=== PATIENT | female | born 1990 | race Caucasian/White ===

== ENCOUNTER 2017-08-31 14:58 | Emergency (ER) | payer OTHER ==
--- NOTE | 2017-08-31 16:05 | ED Physician Documentation ---
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: section - Present Medications Home Medications: Ambulatory Orders Medication Instructions Recorded Confirmed Amoxicillin 500 mg PO Q8H #30 capsule 08/31/17 Ibuprofen [Motrin] 400 mg PO Q6H PRN #30 tablet 08/31/17 - Allergies Allergies/Adverse Reactions: Allergies Allergy/AdvReac Type Severity Reaction Status Date / Time No Known Drug Allergies Allergy Verified 08/31/17 15:11 - Social History Does the pt smoke?: No Smoking Status: Never smoker Does the pt drink ETOH?: No Does the pt have substance abuse?: No PD ED PE NORMAL - Vitals Vital signs reviewed: Yes - General General: Alert and oriented X 3 - HEENT HEENT: No: Ears normal (dulled TM s erythema or purulent fluid), Pharynx benign (mild erythema no exudate) - Neck Neck: Supple, no meningeal sign, Other (R ant cervial adenopathy, no pain with tracheal manipulation) - Cardiac Cardiac: RRR - Respiratory Respiratory: No respiratory distress, Clear bilaterally - Abdomen Abdomen: Soft, Non tender, No organomegaly - Derm Derm: Normal color - Free text exam Free text exam: no supra infra clavicular or axillary adenopathy Results - Vitals Vitals: Vital Signs - 24 hr 08/31/17 15:08 Temperature 36.7 C Heart Rate 64 Respiratory 16 Rate Blood Pressure 129/72 O2 Saturation 100 Oxygen O2 Source Room air Departure - Departure Disposition: 01 Home, Self Care Clinical Impression: Cervical adenitis Condition: Good Instructions: ED Cervical Adenitis Abx Tx Prescriptions: Amoxicillin 500 mg PO Q8H #30 capsule Ibuprofen [Motrin] 400 mg PO Q6H PRN #30 tablet PRN Reason: Pain
[2017-08-31 16:30] VITALS: BP 115/77
== END 2017-08-31 16:29 | disposition home or self-care (01) ==
LOC: ED 14:58
DX: I88.9 Nonspecific lymphadenitis, unspecified (principal)
CPT/HCPCS: 99283

== ENCOUNTER 2018-03-08 10:13 | Emergency (ER) | payer OTHER ==
[2018-03-08 10:21] VITALS: BP 127/95
[2018-03-08] MEDS ORDERED: LIDOCAINE-EPINEPH-TETRACAINE 3 ML SYRINGE TOP STA (10:30)
--- NOTE | 2018-03-08 10:34 | ED Physician Documentation ---
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 - Present Medications Home Medications: Ambulatory Orders Medication Instructions Recorded Confirmed Pnv No.122/Iron/Folic Acid 1 each PO DAILY 03/08/18 03/08/18 [ Multi Tablet] - Allergies Allergies/Adverse Reactions: Allergies Allergy/AdvReac Type Severity Reaction Status Date / Time No Known Drug Allergies Allergy Verified 03/08/18 10:21 - Social History Does the pt smoke?: No Smoking Status: Never smoker Does the pt drink ETOH?: No Does the pt have substance abuse?: No PD ED PE NORMAL - Vitals Vital signs reviewed: Yes - Extremities Extremities: Other (L index approx 1 cm very clean lac to radial aspect PIP, no FB, no tendon involvemnt, nl sensation, no active bleeding) Results - Vitals Vitals: Vital Signs - 24 hr 03/08/18 10:19 Temperature 35.9 C L Heart Rate 104 H Respiratory 18 Rate Blood Pressure 127/95 H O2 Saturation 98 Oxygen O2 Source Room air Procedures - Laceration (location) L index Length in cm: 1 Wound type: Linear Neurovascular status: Sensory intact, Motor intact Tendon involvement: Tendon intact Anesthesia: LET Wound Preparation: Irrigated copiously NS Skin layer closure: Dermabond Other: Patient tolerated well, No complications, Tetanus UTD (she called her mom and confirmed 5 years ago) PD MEDICAL DECISION MAKING - ED course ED course: medical screening exam provided 1 cm lac : very clean and sharp and well approximated and only approx 1 cm - feel good candidate for dermabond - emphasized need for wearing splint so as not to stress healing wound irrigated repaired dc - Sepsis Event Vital Signs: Vital Signs - 24 hr 03/08/18 10:19 Temperature 35.9 C L Heart Rate 104 H Respiratory 18 Rate Blood Pressure 127/95 H O2 Saturation 98 Oxygen O2 Source Room air Departure - Departure Disposition: 01 Home, Self Care Clinical Impression: Laceration Condition: Good Instructions: ED Laceration Ext Skin Glue Follow-Up: DAJUAN SALEH MD [Primary Care Provider] - Comments: Wear the splint to avoid stressing the healing wound The glue will gradually flake off over about 10 days May shower and wash your hands as needed Do not apply any ointment or lotion as that will dissolve the glue This wound should be low risk for infection - but even low risk wounds and with good wound care, some cuts get infected - please return if you notice redness swelling, streaks, discharge, or fever
== END 2018-03-08 11:12 | disposition home or self-care (01) ==
LOC: ED 10:13
DX: O99.89 Other specified diseases and conditions complicating pregnancy, childbirth and the puerperium (principal); S61.211A Laceration without foreign body of left index finger without damage to nail, initial encounter; W26.0XXA Contact with knife, initial encounter; Y93.G9 Activity, other involving cooking and grilling; Z3A.20 20 weeks gestation of pregnancy
CPT/HCPCS: 12001; 99282; 99283

== ENCOUNTER 2018-03-09 19:58 | Observation (INO) | payer OTHER ==
[2018-03-09 20:22] LABS: BILIRUBIN,URINE NEGATIVE (NEGATIVE); GLUCOSE, URINE (UA) NEGATIVE (NEGATIVE); KETONES,URINE (UA) NEGATIVE (NEGATIVE); LEUKOCYTE ESTERASE, URINE NEGATIVE (NEGATIVE); NITRITE,URINE NEGATIVE (NEGATIVE); OCCULT BLOOD,URINE NEGATIVE (NEGATIVE); PROTEIN,URINE NEGATIVE (NEGATIVE); UROBILINOGEN,URINE 0.2 (NORMAL) E.U./dL (NORMAL)
[2018-03-09 20:24] LABS: CLARITY,URINE CLEAR (CLEAR)
[2018-03-09] MEDS ORDERED: HYDROmorphone 0.5 MG/0.5 ML SYRINGE IVP PRN (20:47)
[2018-03-09] MEDS ORDERED: ONDANSETRON 4 MG/2 ML VIAL IVP PRN (20:47)
[2018-03-09] MEDS: LACTATED RINGERS 1,000 ML IV SCH (21:16)
[2018-03-09 21:26] LABS: BACTERIA,URINE None Seen /HPF (None Seen); RBC,URINE None Seen /HPF (0-5); SQUAMOUS EPITHELIAL CELL,UR MOD Squamous (<= Few)
[2018-03-09] MEDS: HYDROmorphone 0.5 MG/0.5 ML SYRINGE IVP PRN (22:36)
[2018-03-09 22:40] LABS: BASOPHILS % (AUTO) 0.2 %; EOSINOPHILS # (AUTO) 0.1 10^3/uL (0.0-0.7); EOSINOPHILS % (AUTO) 0.6 %; HGB - HEMOGLOBIN 12.2 g/dL (12.0-16.0); LYMPHOCYTES # (AUTO) 1.2 10^3/uL (1.5-3.5); LYMPHOCYTES % (AUTO) 10.1 %; MEAN CORPUSCULAR HEMOGLOBIN 30.3 pg (27.0-31.0); MEAN CORPUSCULAR HGB CONC 34.4 g/dL (32.0-36.0); MEAN CORPUSCULAR VOLUME 88.1 fL (81.0-99.0); MEAN PLATELET VOLUME 7.9 fL (7.9-10.8); MONOCYTES # (AUTO) 0.7 10^3/uL (0.0-1.0); MONOCYTES % (AUTO) 5.4 %; NEUTROPHILS # (AUTO) 10.1 10^3/uL (1.5-6.6); NEUTROPHILS % (AUTO) 83.7 %; PLT - PLATELET COUNT 215 10^3/uL (130-450); RED BLOOD COUNT 4.04 10^6/uL (4.20-5.40); RED CELL DISTRIBUTION WIDTH 12.6 % (12.0-15.0); WHITE BLOOD COUNT 12.1 x10^3/uL (4.8-10.8)
--- NOTE | 2018-03-09 23:43 | Ultrasound Report ---
Reason: R abdominal pain Procedure Date: 03/09/2018 Accession Number: [id number] / [id number] Procedure: US - Abdomen Limited CPT Code: FULL RESULT: EXAM: Limited ABDOMEN ultrasound EXAM DATE: 03/09/2018 10:53 PM. CLINICAL HISTORY: R abdominal pain. COMPARISON: RETROPERITONEAL LIMITED 03/09/2018 10:35 PM. TECHNIQUE: Real-time scanning was performed of the right lower quadrant with static images obtained. FINDINGS: APPENDIX: Not seen. COMPRESSION TOLERATED: Marked ASSOCIATED FINDINGS: Lymph Nodes Seen: No Free Fluid/Complex Fluid Seen: No Thickened Bowel Wall Seen: No Other: 7 mm calculus at the right ureterovesicular junction. Normal right ovary. IMPRESSION: Nonvisualization of the appendix. 7 mm calculus at the right ureterovesicular junction. RADIA
--- NOTE | 2018-03-09 23:44 | Ultrasound Report ---
Reason: R flank pain Procedure Date: 03/09/2018 Accession Number: [id number] / [id number] Procedure: US - Retroperitoneal Limited CPT Code: FULL RESULT: EXAM: RENAL ULTRASOUND EXAM DATE: 03/09/2018 10:35 PM. CLINICAL HISTORY: R flank pain. COMPARISON: None. TECHNIQUE: Real-time scanning was performed with static images obtained. As requested, only the right kidney was evaluated. FINDINGS: Right Kidney: 12.0 x 8.3 x 7.1 cm. Moderate hydronephrosis and hydroureter. Bladder: The right ureteral jet is not visualized. There is a 7 mm shadowing calculus at the right ureterovesicular junction. Other: None. IMPRESSION: 7 mm calculus at the right ureterovesicular junction, producing right hydronephrosis and hydroureter. RADIA
[2018-03-10] MEDS: LACTATED RINGERS 1,000 ML IV SCH ×2 (00:33→07:01)
[2018-03-10] MEDS: HYDROmorphone 0.5 MG/0.5 ML SYRINGE IVP PRN ×2 (00:38→02:21)
[2018-03-10] MEDS ORDERED: SODIUM CHLORIDE FLUSH 0.9% 10 ML SYRINGE ONE (02:19)
[2018-03-10] MEDS ORDERED: HYDROmorphone 0.5 MG/0.5 ML SYRINGE IVP PRN (03:34)
[2018-03-10 04:17] LABS: CREATININE 0.6 mg/dL (0.4-1.0)
[2018-03-10 08:12] VITALS: BP 104/53
[2018-03-10] MEDS ORDERED: TAMSULOSIN 0.4 MG CAPSULE PO SCH (09:00)
--- NOTE | 2018-03-10 13:37 | DISCHARGE SUMMARY ---
Physician: Laurita Toussaint DO FACOG DATE OF ADMISSION: 03/09/2018 DATE OF DISCHARGE: 03/10/2018 DIAGNOSES ON ADMISSION 1. A 27-year-old G3, P1-0-1-1 with a 20-week 2-day intrauterine . 2. Right flank pain. 3. History of delivery x1. DIAGNOSES ON DISCHARGE 1. A 27-year-old G3, P1-0-1-1 with a 20-week 3-day intrauterine . 2. Right renal stone. 3. Prior delivery x1. HISTORY OF PRESENT ILLNESS: This is a patient of the [facility]. She is a 27-year-old G3, P1-0-1-1 with a 20-week 2-day intrauterine . She presented with complaints of right flank pain. This pain later evolved to include the right lower quadrant. Records from the [facility] were obtained and show the following past medical history: ALLERGIES: NO KNOWN DRUG ALLERGIES. MEDICATIONS 1. vitamins. 2. Acetaminophen/butalbital/caffeine. SOCIAL HISTORY: She denies any tobacco or alcohol or illicit drug use. Her spouse is Jean Marie Whitehead. PAST SURGICAL HISTORY 1. One AB. 2. One delivery on 05/28/2013 in [place], [place] secondary to arrest of cervical dilation at 7 cm and intolerance to labor at 40 weeks gestation. The male baby weighed 3714 grams. HOSPITAL COURSE: The patient has been seen several times at the [facility] on 10/23, 02/14, 12/25, 01/22, and 02/26. Review of her blood pressures show that she has been normotensive, and she has been planning to go to [facility] for a vaginal trial of labor. records reveal that she is negative for gonorrhea and chlamydia. Quad screen is negative. The patient was worked up, and the urinalysis was negative. A retroperitoneal ultrasound was performed, and showed the right kidney measuring 12.0 x 8.3 x 7.1 cm. There was moderate hydronephrosis and hydroureter. The right ureteral jet was not visualized. There is a 7 mm shadowing calculus at the right ureterovesical junction. Impression: A 7 mm calculus of the right ureterovesical junction producing right hydronephrosis and hydroureter. The patient's symptoms were much improved after IV hydration, Zofran, and Dilaudid. The patient is feeling much better this morning. The patient will be discharged to home today with prescription for Flomax 0.4 mg, as well as a prescription for oxycodone. She has been recommended to see her primary guest relation officer, Dr. Jaime Mcfarland, at the [employer] [facility]. I told her that it is important for her to have Dr. Mcfarland facilitate an immediate urology consult in order to remove the stone. cc: [facility] TD: 03/10/2018 09:05 MTDD
== END 2018-03-10 09:01 | disposition home or self-care (01) ==
LOC: WFO 19:58 → FBP 20:01 → WFO 03-10 → FBP 03-10 00:02
PROVIDERS: ADMIT Obstetrics & Gynecology; ATTEND Obstetrics & Gynecology
DX: O99.89 Other specified diseases and conditions complicating pregnancy, childbirth and the puerperium (principal); N13.2 Hydronephrosis with renal and ureteral calculous obstruction; Z3A.20 20 weeks gestation of pregnancy
CPT/HCPCS: 36415; 76705; 76775; 81001; 82565; 85025; 87086; 96361; 96374; 96375; 96376; 99214; A9270; G0378; J1170; J7120; 81003

== ENCOUNTER 2018-04-06 14:45 | Observation (INO) | payer OTHER ==
[2018-04-06] MEDS ORDERED: LACTATED RINGERS 1,000 ML IV ONE (15:25)
[2018-04-06] MEDS ORDERED: SODIUM CHLORIDE FLUSH 0.9% 10 ML SYRINGE ONE (15:25)
[2018-04-06] MEDS ORDERED: HYDROmorphone 0.5 MG/0.5 ML SYRINGE ONE (15:26)
[2018-04-06 15:39] LABS: BASOPHILS % (AUTO) 0.1 %; EOSINOPHILS # (AUTO) 0.2 10^3/uL (0.0-0.7); EOSINOPHILS % (AUTO) 1.2 %; HGB - HEMOGLOBIN 12.5 g/dL (12.0-16.0); LYMPHOCYTES # (AUTO) 1.5 10^3/uL (1.5-3.5); LYMPHOCYTES % (AUTO) 8.6 %; MEAN CORPUSCULAR HEMOGLOBIN 30.5 pg (27.0-31.0); MEAN CORPUSCULAR HGB CONC 34.2 g/dL (32.0-36.0); MEAN CORPUSCULAR VOLUME 89.2 fL (81.0-99.0); MEAN PLATELET VOLUME 8.2 fL (7.9-10.8); MONOCYTES # (AUTO) 1.1 10^3/uL (0.0-1.0); MONOCYTES % (AUTO) 6.6 %; NEUTROPHILS # (AUTO) 14.6 10^3/uL (1.5-6.6); NEUTROPHILS % (AUTO) 83.5 %; PLT - PLATELET COUNT 215 10^3/uL (130-450); WHITE BLOOD COUNT 17.4 x10^3/uL (4.8-10.8)
[2018-04-06 15:48] LABS: BILIRUBIN,URINE NEGATIVE (NEGATIVE); GLUCOSE, URINE (UA) NEGATIVE (NEGATIVE); KETONES,URINE (UA) TRACE mg/dL (NEGATIVE); LEUKOCYTE ESTERASE, URINE NEGATIVE (NEGATIVE); NITRITE,URINE NEGATIVE (NEGATIVE); OCCULT BLOOD,URINE TRACE-INTA (NEGATIVE); PROTEIN,URINE NEGATIVE (NEGATIVE); UROBILINOGEN,URINE 0.2 (NORMAL) E.U./dL (NORMAL)
[2018-04-06 15:51] LABS: CLARITY,URINE CLEAR (CLEAR)
[2018-04-06] MEDS ORDERED: LACTATED RINGERS 1,000 ML IV SCH (16:00)
[2018-04-06 16:23] LABS: BACTERIA,URINE None Seen /HPF (None Seen); RBC,URINE 0-5 /HPF (0-5); SQUAMOUS EPITHELIAL CELL,UR NONE SEEN (<= Few)
[2018-04-06] MEDS: HYDROmorphone 0.5 MG/0.5 ML SYRINGE IVP PRN ×7 (16:31→23:24)
[2018-04-06] MEDS ORDERED: ZOLPIDEM 5 MG TABLET PO PRN (16:47)
[2018-04-06] MEDS ORDERED: HYDROcod/ACETAM 5/325 MG TABLET PO PRN (16:47)
[2018-04-06] MEDS ORDERED: SODIUM CHLORIDE FLUSH 0.9% 10 ML SYRINGE IVP PRN (16:47)
--- NOTE | 2018-04-06 16:48 | Ultrasound Report ---
Reason: Right flank pain that started this morning Procedure Date: 04/06/2018 Accession Number: [id number] / [id number] Procedure: US - Retroperitoneal Limited CPT Code: FULL RESULT: EXAM: RENAL ULTRASOUND EXAM DATE: 04/06/2018 03:44 PM. CLINICAL HISTORY: History of kidney stones and lithotripsy. Right flank pain that started this morning. COMPARISON: RETROPERITONEAL LIMITED 03/09/2018 10:35 PM. TECHNIQUE: Real-time scanning was performed with static images obtained. FINDINGS: Right Kidney: 12.0 x 6.5 x 5.6 cm. Persistent recurrent moderate right hydronephrosis. Numerous echogenic foci throughout the right calyceal system. Normal caliber right renal cortex. Right ureter not visualized. Left Kidney: Surgically absent. Bladder: Patient voided prior to exam. 23 cc of urine within the urinary bladder. No bladder masses nor bladder wall thickening. No stones within the urinary bladder. Other: None. IMPRESSION: 1. Left nephrectomy. 2. Right nephrolithiasis. 3. Persistent recurrent moderate right hydronephrosis. Indeterminant as regards to location/etiology of presumed right ureteral obstruction. RADIA ADDENDUM: 04/07/18 14:57 Correction: The left kidney was not interrogated, as per provider request. Therefore, the presumption of left nephrectomy given the lack of images and the crossed out markings on the worksheet as regards to the left kidney is incorrect. I apologize for any confusion that this error caused.
[2018-04-06] MEDS ORDERED: PROMETHAZINE 25 MG/1 ML VIAL IM PRN (17:00)
[2018-04-06] MEDS: LACTATED RINGERS 1,000 ML IV SCH ×2 (19:46→23:57)
--- NOTE | 2018-04-06 23:02 | HISTORY & PHYSICAL EXAMINATION ---
Chief Complaint - Chief Complaint Chief Complaint: Patient complains of right sided flank pain and history of urolithiasis History of Present Illness - Admitted From Admitted From:: Home - History Obtained From Records Reviewed: Yes History obtained from: From patient Exam Limitations: None, patient cooperative - History of Present Illness HPI Comment/Other: 24-week 2-day CT confirmed renal lithiasis Right hydroureter and evidence of stone Prior lithotripsy Today's ultrasound reports no left kidney Anxiety disorder Eczema Ricarda Andrea is a 27-year-old 3 para 1011 woman with a yu at 24 weeks 2 days who reports severe right flank pain (grade 7/10) that began this morning. She has known right renal lithiasis and october 2017 underwent lithotripsy in [place]. She additionally has recurrent UTIs. Currently she has no hematuria, foul-smelling urine or dysuria. There was no fever reported however during the course of observation temp florence to 37.6. without chills. Thus far the is progressed normally. Other than an occasional URI. LMP is 18 October yielding an TAMMIE of 25 July. Baseline labs: GC/chlamydia negative, cystic fibrosis screen negative, hemoglobin 13.0, urinalysis negative, blood type O+ antibody screen negative, HIV negative, hepatitis B surface an tigen negative, rubella immune History - Past Medical History Cardiovascular: reports: None Respiratory: reports: None Neuro: reports: None Endocrine/Autoimmune: reports: None, Other (1 hour glucose screening pending) GI: reports: None TRIAGE TECHNICIAN: reports: None : reports: Kidney stones HEENT: reports: None Psych: reports: Anxiety Musculoskeletal: reports: None Derm: reports: Eczema - Past Surgical History General: reports: Cholecystectomy /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 - Substance History Use: Uses substance without health or social issues: NONE Meds/Allgy - Home Medications Home Medications: Ambulatory Orders Medication Instructions Recorded Confirmed Pnv No.122/Iron/Folic Acid 1 each PO DAILY 03/08/18 03/08/18 [ Multi Tablet] - Allergies Allergies/Adverse Reactions: Allergies Allergy/AdvReac Type Severity Reaction Status Date / Time No Known Drug Allergies Allergy Verified 03/08/18 10:21 Review of Systems - Constitutional Constitutional: reports: Fatigue - Eyes Eyes: reports: Other (None) - Ears, Nose & Throat Ears, Nose & Throat: reports: Other (None) - Cardiovascular Cariovascular: reports: Other (None) - Respiratory Respiratory: reports: Other (None) - Gastrointestinal Gastrointestinal: reports: Other (None) - Genitourinary Genitourinary: reports: Flank pain - Musculoskeletal Musculoskeletal: reports: Other (None) - Integumentary Integumentary: reports: Other (None) - Neurological Neurological: reports: Other (None) - Psychiatric Psychiatric: reports: Anxiety, Other - Endocrine Endocrine: reports: Other (None) - Hematologic/Lymphatic Hematologic/Lymphatic: reports: Other (None) Exam - Vital Signs Vital Signs: Vital Signs x48h Temp Pulse Resp BP BP Pulse Ox 04/06/18 21:49 98.4 F 04/06/18 19:31 99.3 F 109 H 20 126/71 04/06/18 18:52 98.1 F 98 22 114/90 H 04/06/18 16:30 95 20 112/68 99 04/06/18 14:57 97.7 F 98 20 114/74 100 - Physical Exam General Appearance: positive: Mild distress Eyes Bilateral: positive: Normal inspection, EOMI, Conjunctivae nml, No scleral icterus ENT: positive: Pharynx nml Neck: positive: Nml inspection, Thyroid nml Respiratory: positive: Chest non-tender, No respiratory distress, Breath sounds nml Cardiovascular: positive: Regular rate & rhythm, No murmur, No gallop Abdomen: positive: Non-tender, No organomegaly, No distention, Other (Right CVA tenderness) Back: positive: CVA tenderness (R) Skin: positive: Color nml, No rash, Warm Extremities: positive: Non-tender, Full ROM Neurologic/Psychiatric: positive: Oriented x3, CN's nml (2-12), Motor nml, Sensation nml, Mood/affect nml Reflexes: Knee (R): 2+, Knee (L): 2+ Conclusion/Plan - Lab Results Fish Bones: 04/06/18 15:32 Assessment/Plan - Assessment/Plan Assessment: Mrs. Whitehead is a 27-year-old 3 para 1 woman with known urolithiasis, right flank pain and mild right hydroureter. She is in the process of passing a stone and suffering renal colic. Her white count is significantly high and later during her observation her temperature florence. This rises possibility of super infection or pyelonephritis. Renal ultrasound states that left kidney is absent but patient never had renal surgery other than lithotripsy. To her knowledge she has not had any congenital anomalies. I will ask radiology to confirm this important finding. Plan: 1. Admit for observation, do not expect patient to stay more than 72 hours. 2. Begin aggressive IV hydration with lactated Ringer's 3. Continued Dilaudid IV for pain as needed 4. Begin Unasyn 1.5 g every 6 hours IV piggyback 5. Begin compression boots for DVT prophylaxis
[2018-04-06] MEDS: SODIUM CHLORIDE FLUSH 0.9% 10 ML SYRINGE IVP SCH ×2 (23:24→23:57)
[2018-04-06] MEDS: AMPICILLIN/SULBACTAM 1.5 GM in SODIUM CHLORIDE 0.9% MINIBAG 100 ML IV SCH (23:24)
[2018-04-07] MEDS: HYDROmorphone 0.5 MG/0.5 ML SYRINGE IVP PRN ×3 (01:57→07:53)
[2018-04-07] MEDS: ACETAMINOPHEN 325 MG TABLET PO PRN ×2 (01:57→06:10)
[2018-04-07] MEDS: LACTATED RINGERS 1,000 ML IV SCH ×2 (03:38→08:40)
[2018-04-07 05:36] LABS: BASOPHILS % (AUTO) 0.1 %; HGB - HEMOGLOBIN 10.3 g/dL (12.0-16.0); LYMPHOCYTES # (AUTO) 0.4 10^3/uL (1.5-3.5); LYMPHOCYTES % (AUTO) 2.5 %; MEAN CORPUSCULAR HGB CONC 34.5 g/dL (32.0-36.0); MEAN CORPUSCULAR VOLUME 89.9 fL (81.0-99.0); MEAN PLATELET VOLUME 7.8 fL (7.9-10.8); MONOCYTES # (AUTO) 0.8 10^3/uL (0.0-1.0); MONOCYTES % (AUTO) 5.1 %; NEUTROPHILS # (AUTO) 14.3 10^3/uL (1.5-6.6); NEUTROPHILS % (AUTO) 92.3 %; PLT - PLATELET COUNT 158 10^3/uL (130-450); RED BLOOD COUNT 3.31 10^6/uL (4.20-5.40); RED CELL DISTRIBUTION WIDTH 13.1 % (12.0-15.0); WHITE BLOOD COUNT 15.5 x10^3/uL (4.8-10.8)
[2018-04-07 05:47] LABS: ALBUMIN 2.4 g/dL (3.2-5.5); ALBUMIN/GLOBULIN RATIO 0.9 (1.0-2.2); BILIRUBIN,TOTAL 0.6 mg/dL (0.2-1.0); CALCIUM 8.2 mg/dL (8.5-10.3); TOTAL PROTEIN 5.2 g/dL (6.7-8.2)
[2018-04-07] MEDS: AMPICILLIN/SULBACTAM 1.5 GM in SODIUM CHLORIDE 0.9% MINIBAG 100 ML IV SCH (06:10)
[2018-04-07 06:49] LABS: BILIRUBIN,URINE NEGATIVE (NEGATIVE); GLUCOSE, URINE (UA) NEGATIVE (NEGATIVE); KETONES,URINE (UA) NEGATIVE (NEGATIVE); LEUKOCYTE ESTERASE, URINE NEGATIVE (NEGATIVE); NITRITE,URINE NEGATIVE (NEGATIVE); OCCULT BLOOD,URINE NEGATIVE (NEGATIVE); PROTEIN,URINE NEGATIVE (NEGATIVE); UROBILINOGEN,URINE 0.2 (NORMAL) E.U./dL (NORMAL)
[2018-04-07 06:53] LABS: CLARITY,URINE CLEAR (CLEAR)
[2018-04-07] MEDS ORDERED: SODIUM CHLORIDE 0.9% 500 ML IV ONE ×2 (07:00→07:07)
[2018-04-07] MEDS ORDERED: SODIUM CHLORIDE 0.9% 1,000 ML IV ONE ×3 (07:01→08:05)
[2018-04-07] MEDS ORDERED: SODIUM CHLORIDE 0.9% 1,000 ML IV SCH ×2 (07:06→08:00)
--- NOTE | 2018-04-07 07:25 | PROVIDER PROGRESS NOTE ---
Subjective - Prog Note Date Prog Note Date: 04/07/18 Prog Note Time: 06:50 - Subjective Pt reports feeling: Worse (Blood pressure low and tachycardia; possible developing urosepsis) Subjective: Mrs. Whitehead experienced a temperature rise last night to 37.6 degrees without [place]. Blood cultures x2 were drawn and pending. She was on Unasyn 1.5 g every 6 hours. Recently second ultrasound was performed to determine status of left kidney. Right kidney is most likely totally or partially obstructed with stone. The stone has not passed despite aggressive hydration. Patient is alert and answers questions. She reports no feverishness Reiger's nausea or vomiting. Right flank pain persists. She reports no hematuria. Objective - Vital Signs/Intake & Output Reviewed Vital Signs: Yes Vital Signs: Vital Signs x48h Temp Pulse Resp BP Pulse Ox 04/07/18 07:19 98.8 F 122 H 18 88/40 L 96 04/07/18 06:06 99.7 F H 117 H 20 85/42 L 97 04/07/18 04:15 100.8 F H 04/07/18 03:28 100.9 F H 125 H 20 109/43 L 93 04/07/18 01:55 101.1 F H 04/06/18 23:24 99.3 F 114 H 20 96/52 L 97 Intake & Output: Intake & Output 04/04/18 04/05/18 04/06/18 04/07/18 23:59 23:59 23:59 23:59 Intake Total 2500.000 1420.833 Output Total 250 250 Balance 2250.000 1170.833 - Objective General Appearance: positive: Mild distress Eyes Bilateral: positive: Normal inspection, EOMI, Conjunctivae nml, No scleral icterus ENT: positive: ENT inspection nml, No signs of dehydration Neck: positive: Nml inspection, Thyroid nml Respiratory: positive: Breath sounds nml Cardiovascular: positive: Regular rate & rhythm, Systolic murmur, Other (Tachycardia, 3/6 flow murmur without diastolic component gallop or rub) Abdomen: positive: Non-tender, No organomegaly, No distention Back: positive: CVA tenderness (R) Skin: positive: Color nml, No rash, Warm, Dry Extremities: positive: Non-tender, Pedal edema, Other (Compression boots in place) Neurologic/Psychiatric: positive: CN's nml (2-12), Motor nml, Sensation nml, Mood/affect nml - Lab Results Fish Bones: 04/07/18 05:25 04/07/18 05:25 Other Labs: Lab Results x24hrs 04/07/18 04/07/18 04/07/18 Range/Units 06:15 05:25 05:25 WBC 15.5 H (4.8-10.8) x10^3/uL RBC 3.31 L (4.20-5.40) 10^6/uL Hgb 10.3 L (12.0-16.0) g/dL Hct 29.8 L (37.0-47.0) % MCV 89.9 (81.0-99.0) fL MCH 31.0 (27.0-31.0) pg MCHC 34.5 (32.0-36.0) g/dL RDW 13.1 (12.0-15.0) % Plt Count 158 (130-450) 10^3/uL MPV 7.8 L (7.9-10.8) fL Neut # (Auto) 14.3 H (1.5-6.6) 10^3/uL Lymph # (Auto) 0.4 L (1.5-3.5) 10^3/uL [place] # (Auto) 0.8 (0.0-1.0) 10^3/uL Eos # (Auto) 0.0 (0.0-0.7) 10^3/uL Baso # (Auto) 0.0 (0.0-0.1) 10^3/uL Absolute Nucleated RBC 0.00 x10^3/uL Nucleated RBC % 0.0 /100WBC Sodium 131 L (135-145) mmol/L Potassium 3.2 L (3.5-5.0) mmol/L Chloride 102 (101-111) mmol/L Carbon Dioxide 20 L (21-32) mmol/L Anion Gap 9.0 (6-13) BUN 8 (6-20) mg/dL Creatinine 1.0 (0.4-1.0) mg/dL Estimated GFR (MDRD) 67 L (>89) Glucose 138 H (70-100) mg/dL Calcium 8.2 L (8.5-10.3) mg/dL Total Bilirubin 0.6 (0.2-1.0) mg/dL AST 25 (10-42) IU/L ALT 13 (10-60) IU/L Alkaline Phosphatase 63 (42-121) IU/L Total Protein 5.2 L (6.7-8.2) g/dL Albumin 2.4 L (3.2-5.5) g/dL Globulin 2.8 (2.1-4.2) g/dL Albumin/Globulin Ratio 0.9 L (1.0-2.2) Urine Color YELLOW Urine Clarity CLEAR (CLEAR) Urine pH 6.0 (5.0-7.5) PH Ur Specific [place] 1.010 (1.002-1.030) Urine Protein NEGATIVE (NEGATIVE) mg/dL Urine Glucose (UA) NEGATIVE (NEGATIVE) mg/dL Urine Ketones NEGATIVE (NEGATIVE) mg/dL Urine Occult Blood NEGATIVE (NEGATIVE) Urine Nitrite NEGATIVE (NEGATIVE) Urine Bilirubin NEGATIVE (NEGATIVE) Urine Urobilinogen 0.2 (NORMAL) (NORMAL) E.U./dL Ur Leukocyte Esterase NEGATIVE (NEGATIVE) Urine RBC (0-5) /HPF Urine WBC (0-5) /HPF Ur Squamous Epith Cells (<= Few) Urine Bacteria (None Seen) /HPF Ur Microscopic Review NOT INDICATED Urine Culture Comments NOT INDICATED 04/06/18 04/06/18 Range/Units 15:32 14:50 WBC 17.4 H (4.8-10.8) x10^3/uL RBC 4.10 L (4.20-5.40) 10^6/uL Hgb 12.5 (12.0-16.0) g/dL Hct 36.6 L (37.0-47.0) % MCV 89.2 (81.0-99.0) fL MCH 30.5 (27.0-31.0) pg MCHC 34.2 (32.0-36.0) g/dL RDW 13.0 (12.0-15.0) % Plt Count 215 (130-450) 10^3/uL MPV 8.2 (7.9-10.8) fL Neut # (Auto) 14.6 H (1.5-6.6) 10^3/uL Lymph # (Auto) 1.5 (1.5-3.5) 10^3/uL [place] # (Auto) 1.1 H (0.0-1.0) 10^3/uL Eos # (Auto) 0.2 (0.0-0.7) 10^3/uL Baso # (Auto) 0.0 (0.0-0.1) 10^3/uL Absolute Nucleated RBC 0.00 x10^3/uL Nucleated RBC % 0.0 /100WBC Sodium (135-145) mmol/L Potassium (3.5-5.0) mmol/L Chloride (101-111) mmol/L Carbon Dioxide (21-32) mmol/L Anion Gap (6-13) BUN (6-20) mg/dL Creatinine (0.4-1.0) mg/dL Estimated GFR (MDRD) (>89) Glucose (70-100) mg/dL Calcium (8.5-10.3) mg/dL Total Bilirubin (0.2-1.0) mg/dL AST (10-42) IU/L ALT (10-60) IU/L Alkaline Phosphatase (42-121) IU/L Total Protein (6.7-8.2) g/dL Albumin (3.2-5.5) g/dL Globulin (2.1-4.2) g/dL Albumin/Globulin Ratio (1.0-2.2) Urine Color YELLOW Urine Clarity CLEAR (CLEAR) Urine pH 6.0 (5.0-7.5) PH Ur Specific [place] >=1.030 H (1.002-1.030) Urine Protein NEGATIVE (NEGATIVE) mg/dL Urine Glucose (UA) NEGATIVE (NEGATIVE) mg/dL Urine Ketones TRACE (NEGATIVE) mg/dL Urine Occult Blood TRACE-INTA (NEGATIVE) Urine Nitrite NEGATIVE (NEGATIVE) Urine Bilirubin NEGATIVE (NEGATIVE) Urine Urobilinogen 0.2 (NORMAL) (NORMAL) E.U./dL Ur Leukocyte Esterase NEGATIVE (NEGATIVE) Urine RBC 0-5 (0-5) /HPF Urine WBC 0-3 (0-5) /HPF Ur Squamous Epith Cells NONE SEEN (<= Few) Urine Bacteria None Seen (None Seen) /HPF Ur Microscopic Review Urine Culture Comments NOT INDICATED - Diagnostic Imaging Diagnostic Imaging Results: positive: Other (Second ultrasound report on status of left kidney pending.) Assessment/Plan - Assessment/Plan Assessment: Mrs. Whitehead is a 27-year-old woman with known right urolithiasis and probable complete or near complete ureteral obstruction that will not resolve with hydration. At this point there are developing symptoms that suggest urosepsis. There is no clinical suspicion of thrombo-embolic event such as sh ortness of breath or tachypnea. At this point conservative methods for urolithiasis treatment have failed and she will require a urologist intervention to relieve obstruction. Treatment will require transfer and for timely intervention helicopter airlift will be needed. I discussed case with Dr. Yee (Hospital pot sander) and he agrees with the above plan. Plan: * Discontinue lactated Ringer's in favor of normal saline and K riders to correct electrolyte problems. Will continue the same brisk infusion rate to 50 in order to maintain blood pressure * Continue Unasyn at 1.5 g every 6 hours. But intend to change soon depending on blood culture results * Draw LDH * EKG essentially normal * Actively trying to arrange transport at [facility]. Relayed the need for both MFM and urology involvement. They are currently full and trying to locate accepting provider and bed space. I previously contacted [facility] ([phone] hrs.) but could not reach a provider to discuss transfer. [facility] charge nurse involved and aiding in coordination of transport * Supportive care until transport. Discussed situation with patient.
[2018-04-07] MEDS: POTASSIUM CHLOR 10 MEQ/100 ML 10 MEQ/100 ML BAG IV SCH ×2 (07:30→08:20)
[2018-04-07] MEDS: SODIUM CHLORIDE FLUSH 0.9% 10 ML SYRINGE IVP SCH (07:53)
[2018-04-07] MEDS ORDERED: NS W/40 MEQ KCL 1,000 ML IV SCH (08:10)
[2018-04-07] MEDS ORDERED: POTASSIUM CHLORIDE 20 MEQ TABLET PO SCH (08:15)
--- NOTE | 2018-04-07 08:21 | PROVIDER PROGRESS NOTE ---
Subjective - Prog Note Date Prog Note Date: 04/07/18 Prog Note Time: 08:25 - Subjective Pt reports feeling: No change (Continued tachycardia and low blood pressure) Subjective: Patient has right flank pain which is controlled with Dilaudid. She is alert and cooperative with questioning. She reports no nausea vomiting or diarrhea. She has no symptoms of labor such as uterine contractions, leaking fluid or pelvic pressure. Again, I discussed her clinical situation and the need for a urology and M services. Arrangements have made for [facility] transfer to Dr. Ariadna PABLO. Patient understands and accepts care and transport. Appropriate paperwork executed. Objective - Vital Signs/Intake & Output Reviewed Vital Signs: Yes Vital Signs: Vital Signs x48h Temp Pulse Resp BP Pulse Ox 04/07/18 08:14 123 H 20 98/53 L 97 04/07/18 07:49 119 H 18 88/47 L 95 04/07/18 07:29 122 H 20 79/40 L 95 04/07/18 07:19 98.8 F 122 H 18 88/40 L 96 04/07/18 06:35 117 H 75/40 L 04/07/18 06:25 120 H 82/38 L 04/07/18 06:06 99.7 F H 117 H 20 85/42 L 97 04/07/18 04:15 100.8 F H 04/07/18 03:28 100.9 F H 125 H 20 109/43 L 93 04/07/18 01:55 101.1 F H Intake & Output: Intake & Output 04/04/18 04/05/18 04/06/18 04/07/18 23:59 23:59 23:59 23:59 Intake Total 3220.000 1520.833 Output Total 700 600 Balance 2520.000 920.833 - Objective General Appearance: positive: Alert, Mild distress ENT: positive: No signs of dehydration Neck: positive: No JVD Respiratory: positive: No respiratory distress, Breath sounds nml Cardiovascular: positive: Tachycardia, Systolic murmur Abdomen: positive: Non-tender, Other (Uterus flaccid without palpable contractions. Doppler tones reported as positive earlier) Back: positive: CVA tenderness (R) Skin: positive: Color nml, Warm - Lab Results Fish Bones: 10/16/18 05:25 04/07/18 05:25 Other Labs: Lab Results x24hrs 04/07/18 04/07/18 04/07/18 Range/Units 07:20 06:15 05:25 WBC (4.8-10.8) x10^3/uL RBC (4.20-5.40) 10^6/uL Hgb (12.0-16.0) g/dL Hct (37.0-47.0) % MCV (81.0-99.0) fL MCH (27.0-31.0) pg MCHC (32.0-36.0) g/dL RDW (12.0-15.0) % Plt Count (130-450) 10^3/uL MPV (7.9-10.8) fL Neut # (Auto) (1.5-6.6) 10^3/uL Lymph # (Auto) (1.5-3.5) 10^3/uL Bucks # (Auto) (0.0-1.0) 10^3/uL Eos # (Auto) (0.0-0.7) 10^3/uL Baso # (Auto) (0.0-0.1) 10^3/uL Absolute Nucleated RBC x10^3/uL Nucleated RBC % /100WBC Sodium 131 L (135-145) mmol/L Potassium 3.2 L (3.5-5.0) mmol/L Chloride 102 (101-111) mmol/L Carbon Dioxide 20 L (21-32) mmol/L Anion Gap 9.0 (6-13) BUN 8 (6-20) mg/dL Creatinine 1.0 (0.4-1.0) mg/dL Estimated GFR (MDRD) 67 L (>89) Glucose 138 H (70-100) mg/dL Lactic Acid 2.0 (0.5-2.2) mmol/L Calcium 8.2 L (8.5-10.3) mg/dL Total Bilirubin 0.6 (0.2-1.0) mg/dL AST 25 (10-42) IU/L ALT 13 (10-60) IU/L Alkaline Phosphatase 63 (42-121) IU/L Total Protein 5.2 L (6.7-8.2) g/dL Albumin 2.4 L (3.2-5.5) g/dL Globulin 2.8 (2.1-4.2) g/dL Albumin/Globulin Ratio 0.9 L (1.0-2.2) Urine Color YELLOW Urine Clarity CLEAR (CLEAR) Urine pH 6.0 (5.0-7.5) PH Ur Specific Leonidas 1.010 (1.002-1.030) Urine Protein NEGATIVE (NEGATIVE) mg/dL Urine Glucose (UA) NEGATIVE (NEGATIVE) mg/dL Urine Ketones NEGATIVE (NEGATIVE) mg/dL Urine Occult Blood NEGATIVE (NEGATIVE) Urine Nitrite NEGATIVE (NEGATIVE) Urine Bilirubin NEGATIVE (NEGATIVE) Urine Urobilinogen 0.2 (NORMAL) (NORMAL) E.U./dL Ur Leukocyte Esterase NEGATIVE (NEGATIVE) Urine RBC (0-5) /HPF Urine WBC (0-5) /HPF Ur Squamous Epith Cells (<= Few) Urine Bacteria (None Seen) /HPF Ur Microscopic Review NOT INDICATED Urine Culture Comments NOT INDICATED 04/07/18 04/06/18 04/06/18 Range/Units 05:25 15:32 14:50 WBC 15.5 H 17.4 H (4.8-10.8) x10^3/uL RBC 3.31 L 4.10 L (4.20-5.40) 10^6/uL Hgb 10.3 L 12.5 (12.0-16.0) g/dL Hct 29.8 L 36.6 L (37.0-47.0) % MCV 89.9 89.2 (81.0-99.0) fL MCH 31.0 30.5 (27.0-31.0) pg MCHC 34.5 34.2 (32.0-36.0) g/dL RDW 13.1 13.0 (12.0-15.0) % Plt Count 158 215 (130-450) 10^3/uL MPV 7.8 L 8.2 (7.9-10.8) fL Neut # (Auto) 14.3 H 14.6 H (1.5-6.6) 10^3/uL Lymph # (Auto) 0.4 L 1.5 (1.5-3.5) 10^3/uL Bucks # (Auto) 0.8 1.1 H (0.0-1.0) 10^3/uL Eos # (Auto) 0.0 0.2 (0.0-0.7) 10^3/uL Baso # (Auto) 0.0 0.0 (0.0-0.1) 10^3/uL Absolute Nucleated RBC 0.00 0.00 x10^3/uL Nucleated RBC % 0.0 0.0 /100WBC Sodium (135-145) mmol/L Potassium (3.5-5.0) mmol/L Chloride (101-111) mmol/L Carbon Dioxide (21-32) mmol/L Anion Gap (6-13) BUN (6-20) mg/dL Creatinine (0.4-1.0) mg/dL Estimated GFR (MDRD) (>89) Glucose (70-100) mg/dL Lactic Acid (0.5-2.2) mmol/L Calcium (8.5-10.3) mg/dL Total Bilirubin (0.2-1.0) mg/dL AST (10-42) IU/L ALT (10-60) IU/L Alkaline Phosphatase (42-121) IU/L Total Protein (6.7-8.2) g/dL Albumin (3.2-5.5) g/dL Globulin (2.1-4.2) g/dL Albumin/Globulin Ratio (1.0-2.2) Urine Color YELLOW Urine Clarity CLEAR (CLEAR) Urine pH 6.0 (5.0-7.5) PH Ur Specific Leonidas >=1.030 H (1.002-1.030) Urine Protein NEGATIVE (NEGATIVE) mg/dL Urine Glucose (UA) NEGATIVE (NEGATIVE) mg/dL Urine Ketones TRACE (NEGATIVE) mg/dL Urine Occult Blood TRACE-INTA (NEGATIVE) Urine Nitrite NEGATIVE (NEGATIVE) Urine Bilirubin NEGATIVE (NEGATIVE) Urine Urobilinogen 0.2 (NORMAL) (NORMAL) E.U./dL Ur Leukocyte Esterase NEGATIVE (NEGATIVE) Urine RBC 0-5 (0-5) /HPF Urine WBC 0-3 (0-5) /HPF Ur Squamous Epith Cells NONE SEEN (<= Few) Urine Bacteria None Seen (None Seen) /HPF Ur Microscopic Review Urine Culture Comments NOT INDICATED Assessment/Plan - Assessment/Plan Assessment: Patient requires urology and M support for unresolved right renal obstruction and developing urosepsis. Reviewed entire case with Dr. Pablo over the phone and she accepts transport. She is aware of the fluid balance problem with hypokalemia. hypo-natremia. She request continued aggressive IV fluid rate to maintain maternal pressure. Helicopter transport is necessary. Plan: Prior to transport the following items will be accomplished: * Placed second large bore IV and bolus with 1 L of fluids. I selected normal saline. * Mainline IV changed to normal saline with 40 mEq of KCl to be run in at 250 an hour. * Oral potassium supplement 20 mEq to be given now. * Orozco catheter placed * LDH still pending * Cultures started on last night's urine prior to antibiotics * EKG normal * Preparations made for helicopter transport.
[2018-04-07 08:49] VITALS: BP 94/52
[2018-04-07] MEDS ORDERED: POLYETHYLENE GLYCOL 3350 17 GM PACKET PO SCH (09:00)
--- NOTE | 2018-04-07 09:41 | Ultrasound Report ---
Reason: Renal -- Urolithiasis Colic Procedure Date: 04/07/2018 Accession Number: [id number] / [id number] Procedure: US - Retroperitoneal Limited CPT Code: FULL RESULT: EXAM: RENAL ULTRASOUND EXAM DATE: 04/07/2018 12:42 AM. CLINICAL HISTORY: Renal -- Urolithiasis Colic. Evaluate left kidney only COMPARISON: 04/06/2018 right renal ultrasound. TECHNIQUE: Real-time scanning was performed with static images obtained. FINDINGS: Left Kidney: 11.8 x 4.8 x 4.9 cm. Multiple calcifications 4-6 mm. Mild renal pelviectasis Other: None. IMPRESSION: Left kidney is present with multiple calcifications, mild renal pelviectasis. RADIA
== END 2018-04-07 09:20 | disposition short-term general hospital (02) ==
LOC: WFO 14:45 → FBP 14:46 → WFO 16:46 → FBP 16:47
PROVIDERS: ADMIT Obstetrics & Gynecology; ATTEND Obstetrics & Gynecology
DX: O99.89 Other specified diseases and conditions complicating pregnancy, childbirth and the puerperium (principal); N13.2 Hydronephrosis with renal and ureteral calculous obstruction; R65.10 Systemic inflammatory response syndrome (SIRS) of non-infectious origin without acute organ dysfunction; R00.0 Tachycardia, unspecified; R01.1 Cardiac murmur, unspecified; Q60.2 Renal agenesis, unspecified; Z90.49 Acquired absence of other specified parts of digestive tract; O99.282 Endocrine, nutritional and metabolic diseases complicating pregnancy, second trimester; E87.6 Hypokalemia; E87.1 Hypo-osmolality and hyponatremia; Z3A.24 24 weeks gestation of pregnancy
CPT/HCPCS: 36415; 51701; 76775; 80053; 81001; 81003; 83605; 83615; 85025; 87040; 87086; 93005; 96361; 96365; 96366; 96372; 96375; 99213; A9270; G0378; J1170; J7120

== ENCOUNTER 2018-04-14 10:09 | Outpatient (CLI) | payer OTHER ==
[2018-04-14 10:50] VITALS: BP 129/81
[2018-04-14 11:05] LABS: BILIRUBIN,URINE NEGATIVE (NEGATIVE); GLUCOSE, URINE (UA) NEGATIVE (NEGATIVE); KETONES,URINE (UA) NEGATIVE (NEGATIVE); LEUKOCYTE ESTERASE, URINE NEGATIVE (NEGATIVE); NITRITE,URINE NEGATIVE (NEGATIVE); OCCULT BLOOD,URINE MODERATE (NEGATIVE); PROTEIN,URINE NEGATIVE (NEGATIVE); UROBILINOGEN,URINE 0.2 (NORMAL) E.U./dL (NORMAL)
[2018-04-14 11:13] LABS: CLARITY,URINE CLEAR (CLEAR)
[2018-04-14 11:20] LABS: BACTERIA,URINE Rare /HPF (None Seen); SQUAMOUS EPITHELIAL CELL,UR FEW Squamous (<= Few)
--- NOTE | 2018-04-14 16:09 | Ultrasound Report ---
Reason: L Flank Pain Procedure Date: 04/14/2018 Accession Number: [id number] / [id number] Procedure: US - Retroperitoneal CPT Code: FULL RESULT: EXAM: RENAL ULTRASOUND EXAM DATE: 04/14/2018 03:23 PM. CLINICAL HISTORY: L Flank Pain. patient COMPARISON: Ultrasound 04/07/2018, 04/06/2018 and 03/09/2018. TECHNIQUE: Real-time scanning was performed with static images obtained. FINDINGS: Right Kidney: 11.8 x 5 x 6.1 cm. Right hydronephrosis still present, although decreased in degree compared with 04/06/2018. 2 5 mm stones seen mid right kidney. Left Kidney: 12.1 x 5.6 x 4.9 cm. Increased hydronephrosis compared with 04/07/2018. 5 mm mid renal stone again appreciated. Bladder: Bilateral jets seen. The prevoid bladder volume was 389 cc. The postvoid bladder volume was 13 cc. 5 mm stone seen at the right ureterovesical junction. Other: heart rate 140 bpm. IMPRESSION: 1. Bilateral hydronephrosis, decreased on the right and increased on the left compared with prior recent studies. 2. Bilateral nephrolithiasis. 3. 5 mm stone right ureterovesical junction. RADIA
--- NOTE | 2018-04-14 16:59 | PROVIDER PROGRESS NOTE ---
Subjective - Prog Note Date Prog Note Date: 04/14/18 Prog Note Time: 15:00 - Subjective Pt reports feeling: Improved Subjective: Para Mrs. Whitehead is a 27-year-old woman at roughly 24 weeks gestation who has known urolithiasis and a recent bout of Eric nephritis that evolved to a uro-sepsis. She was transferred last to [facility] maternal ICU. Hydration dislodged the stone and operative site urology was not necessary. She was discharged home on ampicillin and Macrobid prophylaxis. Last night at roughly 3 AM she was awoken by right-sided flank pain. She had no fevers chills or symptoms. Eventually her urine did appear bloody. She talked to [facility] triage nurse who instructed her to proceed to [facility] for evaluation. Currently patient's pain has eased and is mostly right-sided. Urinalysis is positive for hematuria at this time Objective - Vital Signs/Intake & Output Vital Signs: Vital Signs x48h Temp Pulse Resp BP 04/14/18 10:37 98.4 F 66 16 129/81 H - Lab Results Other Labs: Lab Results x24hrs 04/14/18 Range/Units 10:58 Urine Color YELLOW Urine Clarity CLEAR (CLEAR) Urine pH 7.0 (5.0-7.5) PH Ur Specific [place] 1.010 (1.002-1.030) Urine Protein NEGATIVE (NEGATIVE) mg/dL Urine Glucose (UA) NEGATIVE (NEGATIVE) mg/dL Urine Ketones NEGATIVE (NEGATIVE) mg/dL Urine Occult Blood MODERATE H (NEGATIVE) Urine Nitrite NEGATIVE (NEGATIVE) Urine Bilirubin NEGATIVE (NEGATIVE) Urine Urobilinogen 0.2 (NORMAL) (NORMAL) E.U./dL Ur Leukocyte Esterase NEGATIVE (NEGATIVE) Urine RBC 11-25 H (0-5) /HPF Urine WBC 0-3 (0-5) /HPF Ur Squamous Epith Cells FEW Squamous (<= Few) Urine Bacteria Rare (None Seen) /HPF Urine Culture Comments NOT INDICATED Physical Exam - Physical Exam General: positive: No acute distress HEENT: positive: Moist mucous membranes Neck: positive: Supple w/out meningeal sx Cardiac: positive: Regular Rate Resipratory: positive: Clear to ausultation dom Abdomen: positive: Normal Bowel sounds, Tender to palpation Female : positive: Other (Mild right flank pain to percussion none on the left; no discoloration of the back) Back: positive: CVA TTP (Predominantly right-sided) Extremities: positive: Normal ROM, No pedal edema Skin: positive: Warm and dry Neurologic: positive: Alert and Oriented X 3, Normal Sensation, Normal Speech Assessment/Plan - Assessment/Plan Assessment: Patient was recently treated for pyelonephritis complicated by urolithiasis and sepsis type reaction at the [facility]. Early this morning she again developed right flank pain despite taking double antibiotics as in structed. The resume stone seems to have passed based on ultrasound data. Continued oral antibiotics should be protective from recurrent pyelonephritis. Plan: Reviewed renal ultrasounds with Dr. Rubio radiology on-call. There is most likely passage of stone but no obstruction. Patient may pass more stones in the future. Discussed these findings with the patient and . Commended her on following instructions and emphasized the importance of prophylactic antibiotics patient discharged home with warning sign and callback instructions. She will be seen in our clinic within 1 week.
== END 2018-04-14 17:00 | disposition home or self-care (01) ==
LOC: WFO 10:09 → FBP 10:12 → WFO 17:00
PROVIDERS: ATTEND Obstetrics & Gynecology
DX: O99.89 Other specified diseases and conditions complicating pregnancy, childbirth and the puerperium (principal); N13.2 Hydronephrosis with renal and ureteral calculous obstruction; Z3A.24 24 weeks gestation of pregnancy
CPT/HCPCS: 76770; 81001; 87086; 99213

== ENCOUNTER 2018-04-28 00:57 | Observation (INO) | payer OTHER ==
[2018-04-28] MEDS ORDERED: SODIUM CHLORIDE FLUSH 0.9% 10 ML SYRINGE ONE (01:47)
[2018-04-28] MEDS ORDERED: fentaNYL 100 MCG/2 ML VIAL IVP ONE (01:48)
[2018-04-28] MEDS ORDERED: MORPHINE PCA 50 MG IV PRN (01:56)
[2018-04-28 02:01] LABS: BASOPHILS % (AUTO) 0.2 %; EOSINOPHILS # (AUTO) 0.2 10^3/uL (0.0-0.7); EOSINOPHILS % (AUTO) 1.3 %; HGB - HEMOGLOBIN 11.6 g/dL (12.0-16.0); LYMPHOCYTES # (AUTO) 1.9 10^3/uL (1.5-3.5); LYMPHOCYTES % (AUTO) 12.4 %; MEAN CORPUSCULAR HEMOGLOBIN 31.1 pg (27.0-31.0); MEAN CORPUSCULAR HGB CONC 34.9 g/dL (32.0-36.0); MEAN CORPUSCULAR VOLUME 89.1 fL (81.0-99.0); MEAN PLATELET VOLUME 7.8 fL (7.9-10.8); MONOCYTES # (AUTO) 1.1 10^3/uL (0.0-1.0); MONOCYTES % (AUTO) 6.9 %; NEUTROPHILS # (AUTO) 12.3 10^3/uL (1.5-6.6); NEUTROPHILS % (AUTO) 79.2 %; PLT - PLATELET COUNT 233 10^3/uL (130-450); RED BLOOD COUNT 3.72 10^6/uL (4.20-5.40); RED CELL DISTRIBUTION WIDTH 13.4 % (12.0-15.0); WHITE BLOOD COUNT 15.5 x10^3/uL (4.8-10.8)
[2018-04-28 02:09] LABS: BILIRUBIN,URINE NEGATIVE (NEGATIVE); CLARITY,URINE CLEAR (CLEAR); GLUCOSE, URINE (UA) NEGATIVE (NEGATIVE); KETONES,URINE (UA) TRACE mg/dL (NEGATIVE); LEUKOCYTE ESTERASE, URINE NEGATIVE (NEGATIVE); NITRITE,URINE NEGATIVE (NEGATIVE); OCCULT BLOOD,URINE SMALL (NEGATIVE); PROTEIN,URINE NEGATIVE (NEGATIVE); UROBILINOGEN,URINE 0.2 (NORMAL) E.U./dL (NORMAL)
[2018-04-28 02:10] LABS: BACTERIA,URINE Rare /HPF (None Seen); SQUAMOUS EPITHELIAL CELL,UR MOD Squamous (<= Few)
[2018-04-28 02:13] LABS: ALBUMIN 3.1 g/dL (3.2-5.5); ALBUMIN/GLOBULIN RATIO 0.9 (1.0-2.2); BILIRUBIN,TOTAL 0.6 mg/dL (0.2-1.0); CALCIUM 9.1 mg/dL (8.5-10.3); CREATININE 0.7 mg/dL (0.4-1.0); TOTAL PROTEIN 6.5 g/dL (6.7-8.2)
[2018-04-28] MEDS ORDERED: ONDANSETRON 4 MG/2 ML VIAL IVP PRN (02:20)
[2018-04-28] MEDS: LACTATED RINGERS 1,000 ML IV SCH ×3 (02:21→19:19)
--- NOTE | 2018-04-28 02:56 | CONSULTATION NOTE ---
Referring Provider Name of Referring Provider:: Jaime Avitia MD Consult Date: 04/28/18 Chief Complaint - Chief Complaint Chief Complaint: Left Flank Pain History of Present Illness - History Obtained From Records Reviewed: Yes History obtained from: Patient Exam Limitations: None - History of Present Illness HPI Comment/Other: Patient is a 27-year-old female with a past medical history significant for nephrolithiasis, migraines and she is currently at 27 weeks gestation who presented to the tree [facility] with left flank pain. The patient has a recent history of kidney stone during her just 1 month ago. At that time she was hospitalized as she had an obstructing kidney stone with sepsis from pyelonephritis. She was transferred to the [facility] where she was treated with IV antibiotics and kidney stones passed without any intervention. The patient was then put on chronic Macrobid which she is to take throughout the . She presented to the emergency department today after she began developing left flank pain at around 6 PM. She states the pain was sharp and progressed throughout the night and she finally decided to come to the emergency room at 1 AM after she had 3 episodes of emesis. The patient states that the pain continues. She denies any fevers or chills. She denies any dysuria, urinary frequency or urgency. She denies any headaches. Patient denies any gross hematuria Patient denies any headaches, blurred vision, runny nose, sore throat, nasal congestion, difficulty swallowing, changes in her appetite, chest pain, cough, shortness of air, orthopnea, PND, increased lower extremely swelling, abdominal pain, muscle aches, joint pain, joint swelling, neck stiffness, recent unintentional weight loss, changes in her appetite, skin rash, skin changes, polyuria, polydipsia, dizziness, or any focal neurologic deficits. On presentation to the tree doctor the patient was afebrile and slightly tachycardic with a heart rate of 110 mildly hypertensive with a blood pressure of 130/77 otherwise she was saturating well on room air. The patient underwent routine lab work which did reveal a leukocytosis with a WBC of 15.5 which is in the normal range for . She also had a mild anemia with a hemoglobin of 11.6 which is also near her baseline. The patient was hyponatremic with a sodium of 132. The patient's urinalysis revealed small occult blood and 6-10 RBCs. The patient had yet to undergo an abdominal ultrasound but it has been ordered by the tree doctor and will be done in the morning. The patient has a history of kidney stones and it is presumed that she has another left sided kidney stone with her left flank pain and hematuria. The patient does not appear to be infected with the stone as she has no WBCs, nitrate or leukocyte esterase on her urine analysis and is afebrile. History - Past Medical History Cardiovascular: reports: None Respiratory: reports: None Neuro: reports: None Endocrine/Autoimmune: reports: None, Other (1 hour glucose screening pending) GI: reports: None SHOT HOLE DRILLER: reports: None : reports: Kidney stones HEENT: reports: None Psych: reports: Anxiety Musculoskeletal: reports: None Derm: reports: Eczema - Past Surgical History General: reports: Cholecystectomy /SHOT HOLE DRILLER: reports: section, Other (Lithotripsy) - Family & Social History Family History: Mother: Diabetes, Type 2 (Mother and grandparents), Hypertension (Mother and grandparents transfer text), Other family: CVA/TIA (Maternal grandmother), Diabetes, Type 2, Hypertension Living arrangement: At home Living Situation: With spouse/s.o. Social History Notes: The patient lives in [place] with her and has been there since June of this year. Prior to that the patient lives in [place]. 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 She has had 3 previous pregnancies 1 which was a normal , 1 miscarriage and this is her third . The patient is a non-smoker, she does not drink alcohol and denies any illicit drug use. - Substance History Use: Uses substance without health or social issues: NONE - POLST Patient has POLST: No POLST Status: Full Code Meds/Allgy - Home Medications Home Medications: Ambulatory Orders Medication Instructions Recorded Confirmed Pnv No.122/Iron/Folic Acid 1 each PO DAILY 03/08/18 03/08/18 [ Multi Tablet] - Allergies Allergies/Adverse Reactions: Allergies Allergy/AdvReac Type Severity Reaction Status Date / Time No Known Drug Allergies Allergy Verified 03/08/18 10:21 Review of Systems - Other Findings Other Findings: A comprehensive review of systems was performed the pertinent positives and negatives are stated above in the HPI and the remainder of the review of systems is negative. Exam - Vital Signs Reviewed Vital Signs: Yes Vital Signs: Vital Signs x48h Temp Pulse Resp BP Pulse Ox 04/28/18 01:15 36.6 C 110 H 20 130/77 98 - Physical Exam General Appearance: positive: Alert, Moderate distress (Patient is writhing in pain holding the left flank. She is not diaphoretic or pale.) Eyes Bilateral: positive: Normal inspection, PERRL, EOMI, No lid inflammation, Conjunctivae nml, No scleral icterus ENT: positive: ENT inspection nml, Pharynx nml, Dry mucous membranes. negative: Purulent nasal drainage, Pharyngeal erythema, Oral lesions Neck: positive: Nml inspection, Thyroid nml, No JVD, Trachea midline. negative: Thyromegaly, Lymphadenopathy (R), Lymphadenopathy (L), Carotid bruit, Tracheal deviation Respiratory: positive: Chest non-tender, No respiratory distress, Breath sounds nml. negative: Wheezes, Rales, Rhonchi Cardiovascular: positive: Regular rate & rhythm, No murmur, No gallop Peripheral Pulses: positive: 2+ Abdomen: positive: Non-tender, No organomegaly, Nml bowel sounds, Other (Patient has a normal abdomen). negative: Guarding, Rebound, Hepatomegaly Back: positive: Nml inspection. negative: CVA tenderness (R), CVA tenderness (L) Skin: positive: Color nml, No rash, Warm, Dry. negative: Cyanosis, Diaphoresis, Pallor, Skin rash Extremities: positive: Non-tender, Full ROM, Nml appearance, No pedal edema Neurologic/Psychiatric: positive: Oriented x3, CN's nml (2-12), Motor nml, Sensation nml, Mood/affect nml Conclusion/Plan - Diagnosis Diagnosis: 1. Nephrolithiasis. 2. Hyponatremia. 3. - Plan Plan: 1. Patient appears to have left-sided kidney stone. Patient has history of kidney stones including obstructing stone 1 month ago during her . At that time she became septic and had to be transferred to the [facility] where she received antibiotics but did not require any intervention. Patient is currently on oral Macrobid for UTI prophylaxis. It appears she has developed another kidney stone as she comes in with left flank pain very similar to previous kidney stones. The patient does have urine analysis which show small occult blood and positive RBCs consistent with another kidney stone. The patient does not have any nitrite, leukocyte Estrace or WBCs to suggest ongoing infection. The patient is afebrile but does have an elevation in her white blood cell count which is likely secondary to her ongoing . At this point we would advise not to start antibiotics unless patient becomes febrile or shows other signs of infection or sepsis. The patient's urine analysis appears negative for ongoing infection. We agree with getting an ultrasound of her kidney to look for possibility of obstructing stone. It does not appear that the patient's stone is likely obstructing as her renal function is stable. We advised pain control with medication that is suitable in we will leave this up to the obstetrics team. Recommend IV fluids 2. Patient has hyponatremia likely secondary to her ongoing kidney stone and some dehydration. Patient appears to have hypovolemic hyponatremia. Patient will be treated with IV fluids and we will continue to monitor her sodium daily. 3. Patient's will be handled by the obstetrics team and we will defer to them for management during this hospitalization. We will continue to follow the patient while she is hospitalized. - Lab Results Lab results reviewed: Yes Fish Bones: 04/28/18 01:50 04/28/18 01:50 Other Lab Results: Laboratory Results WBC 15.5 x10^3/uL (4.8-10.8) H 04/28/18 01:50 RBC 3.72 10^6/uL (4.20-5.40) L 04/28/18 01:50 Hgb 11.6 g/dL (12.0-16.0) L 04/28/18 01:50 Hct 33.2 % (37.0-47.0) L 04/28/18 01:50 MCV 89.1 fL (81.0-99.0) 04/28/18 01:50 MCH 31.1 pg (27.0-31.0) H 04/28/18 01:50 MCHC 34.9 g/dL (32.0-36.0) 04/28/18 01:50 RDW 13.4 % (12.0-15.0) 04/28/18 01:50 Plt Count 233 10^3/uL (130-450) 04/28/18 01:50 MPV 7.8 fL (7.9-10.8) L 04/28/18 01:50 Neut # (Auto) 12.3 10^3/uL (1.5-6.6) H 04/28/18 01:50 Lymph # (Auto) 1.9 10^3/uL (1.5-3.5) 04/28/18 01:50 Yates # (Auto) 1.1 10^3/uL (0.0-1.0) H 04/28/18 01:50 Eos # (Auto) 0.2 10^3/uL (0.0-0.7) 04/28/18 01:50 Baso # (Auto) 0.0 10^3/uL (0.0-0.1) 04/28/18 01:50 Absolute Nucleated RBC 0.01 x10^3/uL 04/28/18 01:50 Nucleated RBC % 0.1 /100WBC 04/28/18 01:50 Sodium 132 mmol/L (135-145) L 04/28/18 01:50 Potassium 3.6 mmol/L (3.5-5.0) 04/28/18 01:50 Chloride 102 mmol/L (101-111) 04/28/18 01:50 Carbon Dioxide 22 mmol/L (21-32) 04/28/18 01:50 Anion Gap 8.0 (6-13) 04/28/18 01:50 BUN 11 mg/dL (6-20) 04/28/18 01:50 Creatinine 0.7 mg/dL (0.4-1.0) 04/28/18 01:50 Estimated GFR (MDRD) 101 (>89) 04/28/18 01:50 Glucose 97 mg/dL (70-100) 04/28/18 01:50 Calcium 9.1 mg/dL (8.5-10.3) 04/28/18 01:50 Total Bilirubin 0.6 mg/dL (0.2-1.0) 04/28/18 01:50 AST 15 IU/L (10-42) 04/28/18 01:50 ALT 10 IU/L (10-60) 04/28/18 01:50 Alkaline Phosphatase 77 IU/L (42-121) 04/28/18 01:50 Total Protein 6.5 g/dL (6.7-8.2) L 04/28/18 01:50 Albumin 3.1 g/dL (3.2-5.5) L 04/28/18 01:50 Globulin 3.4 g/dL (2.1-4.2) 04/28/18 01:50 Albumin/Globulin Ratio 0.9 (1.0-2.2) L 04/28/18 01:50 Urine Color YELLOW 04/28/18 02:00 Urine Clarity CLEAR (CLEAR) 04/28/18 02:00 Urine pH 6.0 PH (5.0-7.5) 04/28/18 02:00 Ur Specific [place] 1.025 (1.002-1.030) 04/28/18 02:00 Urine Protein NEGATIVE mg/dL (NEGATIVE) 04/28/18 02:00 Urine Glucose (UA) NEGATIVE mg/dL (NEGATIVE) 04/28/18 02:00 Urine Ketones TRACE mg/dL (NEGATIVE) 04/28/18 02:00 Urine Occult Blood SMALL (NEGATIVE) H 04/28/18 02:00 Urine Nitrite NEGATIVE (NEGATIVE) 04/28/18 02:00 Urine Bilirubin NEGATIVE (NEGATIVE) 04/28/18 02:00 Urine Urobilinogen 0.2 (NORMAL) E.U./dL (NORMAL) 04/28/18 02:00 Ur Leukocyte Esterase NEGATIVE (NEGATIVE) 04/28/18 02:00 Urine RBC 6-10 /HPF (0-5) H 04/28/18 02:00 Urine WBC 0-3 /HPF (0-5) 04/28/18 02:00 Ur Squamous Epith Cells MOD Squamous (<= Few) H 04/28/18 02:00 Urine Bacteria Rare /HPF (None Seen) 04/28/18 02:00
[2018-04-28] MEDS ORDERED: AMPICILLIN 2 GM in SODIUM CHLORIDE 0.9% MINIBAG 100 ML IV SCH (03:00)
[2018-04-28] MEDS ORDERED: GENTAMICIN PER PHARMACY IV SCH (03:00)
[2018-04-28] MEDS ORDERED: SODIUM CHLORIDE 0.9% IV SCH (03:00)
[2018-04-28] MEDS ORDERED: MORPHINE 10 MG/ML VIAL IVP ONE (03:03)
--- NOTE | 2018-04-28 03:05 | PREOP HISTORY & PHYSICAL ---
DATE OF SERVICE: 04/28/2018 Physician: Jaime Avitia MD IDENTIFICATION: The patient is a 27-year-old G3, P1, AB1 female who is 27.3 weeks with an EDC of 07/25/1017. CHIEF COMPLAINT: Left flank pain. HISTORY OF PRESENT ILLNESS: Patient states that at roughly 1800 this evening she developed left flank pain, which has become progressively more severe. She lists it as a 10/10. She denies any hematuria. She denies contraction, notes good motion at this point. Her OB course has been significant in that she had a pyelonephritis diagnosed back on 04/06/2018, which required hospitalization and transfer to [facility] because of unstable blood pressures. The post-hospitalization course has been unremarkable. She has had an episode of repeat kidney stone back on 04/14/2018. She does have a history of having left renal lithiasis. PAST MEDICAL HISTORY: Positive for kidney stone as well as migraine. PAST SURGICAL HISTORY: She has had a section and a laparoscopic cholecystectomy. laser surgery for kidney stones ALLERGIES: NONE KNOWN. CURRENT MEDICATIONS 1. Macrobid. 2. vitamins. HABITS: Patient denies use of alcohol, tobacco, street or addictive drugs. SOCIAL HISTORY: Patient is to active duty trav[employer]. 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 FAMILY HISTORY: Positive for renal lithiasis. PHYSICAL EXAMINATION GENERAL: Patient is a well-developed, well-nourished female who is complaining of 8/10-9/10 pain. She is moving around and having difficulty finding a comfortable position. VITAL SIGNS: Temperature is 36.6, pulse is 110, respirations are 17, saturation is 98 on room air, blood pressure is 130/77. HEENT: Pupils equal, round. Extraocular muscles are intact. Thyroid is not palpably enlarged. Mouth is clear. HEART: Regular rate and rhythm without murmurs. LUNGS: Lung camara are clear without rales or wheezes. ABDOMEN: Fundal height was noted to be roughly 27 cm. The uterus is nontender. EXTREMITIES: She has distinct left flank pain, which duplicates the pain she is complaining of. She states there is some progression into the groin at this time. There is no calf tenderness at this time. LABORATORY: Sodium is 132. The remainder of her electrolytes are normal with the exception of a mild low protein and albumin. Her CBC shows a white count of 15.5, hemoglobin is 11.6, hematocrit is 33.2, platelets are noted to be 233. Urinalysis shows small occult blood. There are 6-10 RBCs per high-power field. She is leukocyte and nitrite negative. She shows 0-3 WBCs. She has moderate squamous epithelium and only rare bacteria. ASSESSMENT AND PLAN: A 27-year-old G3, P1, AB1 female at 27.3 weeks. She appears to have renal lithiasis, which is giving her pain. She has been on suppressive therapy of Macrobid to prevent recurrence. 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 She is also to be straining her urine. TD: 04/28/2018 02:52 MTDDebbie
[2018-04-28] MEDS: MORPHINE 2 MG/ML CARPUJECT IVP PRN ×3 (04:29→08:13)
[2018-04-28] MEDS ORDERED: NITROFURANTOIN MACRO 100 MG CAPSULE PO SCH (09:00)
--- NOTE | 2018-04-28 14:40 | Ultrasound Report ---
Reason: Hx of renal lithasis and pyelo. left flank pain Procedure Date: 04/28/2018 Accession Number: [id number] / [id number] Procedure: US - Retroperitoneal CPT Code: FULL RESULT: EXAM: RENAL ULTRASOUND EXAM DATE: 04/28/2018 12:52 PM. CLINICAL HISTORY: Hx of renal lithasis and pyelo. Left flank pain. COMPARISON: RETROPERITONEAL 04/14/2018 2:50 PM OB F/U OR REPEAT 04/28/2018 1:11 PM. TECHNIQUE: Real-time scanning was performed with static images obtained. FINDINGS: Right Kidney: 11.8 x 4.9 x 5.5 cm. There is a shadowing stone in the mid to inferior pole of the right kidney. There is mild to moderate hydronephrosis which appears without significant interval change. Left Kidney: 13.2 x 6.9 x 6.8 cm. There are multiple kidney stones. There is mild to moderate hydronephrosis which appears similar to previous. Bladder: Right ureter jet visualized. Left ureter jet not visualized. The prevoid bladder volume was 40 cc. The postvoid bladder volume was not obtained. Other: There is a distal left ureter stone seen on transabdominal images of the bladder and pelvis. Previously seen right UVJ stone is no longer seen. IMPRESSION: 1. New distal left ureter stone at ureterovesicular junction. Left ureter jet not visualized in bladder. 2. Previously seen distal right ureter stone is no longer seen. 3. Bilateral mild to moderate hydronephrosis unchanged. 4. Bilateral nonobstructing kidney stones. RADIA
--- NOTE | 2018-04-28 15:20 | Ultrasound Report ---
Reason: for growth Procedure Date: 04/28/2018 Accession Number: [id number] / [id number] Procedure: US - OB F/U or Repeat CPT Code: FULL RESULT: EXAM: COMPLETE OBSTETRICAL ULTRASOUND EXAM DATE: 04/28/2018 01:11 PM. CLINICAL HISTORY: . Assess growth. COMPARISON: None. TECHNIQUE: Real-time sonographic evaluation of the fetus performed by the household appliances salesperson. Multiple marketing development representative static images were saved for review. DATING: Established EGA 27 weeks 3 days with TAMMIE 07/25/2018 based on verbal report. EGA 28 weeks 0 days with TAMMIE 07/21/2018 based on current ultrasound. GENERAL EVALUATION Guillaume . Cardiac activity: 134 bpm. movement: Visualized. Presentation: Breech Placenta: Anterior position. No evidence for previa. Amniotic fluid: SHANIKA 19.2 cm MVP 6.1 cm. BIOMETRY Bi-Parietal Diameter (BPD): 7.0 cm, 28 weeks 2 days. Head Circumference (HC): 26.0 cm, 28 weeks 2 days. Abdominal Circumference (AC): 23.5 cm, 27 weeks 6 days. Femur Length (FL): 5.2 cm, 27 weeks 6 days. Estimated Weight: 1156 g, 59th percentile for age. MATERNAL STRUCTURES Uterus: Unremarkable. Cervix: Long and closed. Transabdominal length 4.8 cm. IMPRESSION: 1. Estimated weight 1156 g, 59th percentile using reported dates of 27 weeks 3 days and reported EDC of 07/25/2018. SIDNEY
--- NOTE | 2018-04-28 15:49 | PROVIDER PROGRESS NOTE ---
Hospitalist Cross-cover Note - Cross-Cover Note Cross-Cover Note: I reviewed the retroperitoneal US done today, with our Radiogist, Dr Hammer. The L stone at the uretero-vescicle junction measures 8mm and is obstructing that ureter. This would require Urology management, since stones larger than 5mm usually do not pass. I discussed the above with Dr Avitia, who will arrange for her to get transfer to higher level of care, likely to .
--- NOTE | 2018-04-28 18:54 | DISCHARGE SUMMARY ---
Physician: Jaime Avitia MD DATE OF ADMISSION: 04/27/2018 DATE OF DISCHARGE: 04/28/2018 ADMITTING DIAGNOSES 1. A 27-year-old G3, P1 female at 27.3 weeks. 2. Left renal lithiasis. DISCHARGE DIAGNOSES 1. A 27-year-old G3, P1, 27.3 weeks. 2. Left renal lithiasis. 3. Obstruction of the left ureter. PRESENTING HISTORY: The patient is a 27-year-old G3, P1 female who at roughly 1800 on the evening of 04/27/2018, developed sharp left flank pain became progressively worse over time. She lists the ankit n as roughly 10/10. She denies any pain or burning on urination. She denies any contractions. Note s good motion. She does have a history of having a pyelonephritis on 04/06/2018, for which, zelda wharton was required to be hospitalized and transferred to the [facility] because of sepsis. Her postop ho spital course was unremarkable. She was placed on Macrobid for suppression. PHYSICAL EXAMINATION: Her examination today shows significant left flank pain. Her temperature was 3 6.6, pulse 110, respirations 17 and she was saturating 98 on room air. Her blood pressure is 130/77. LABORATORY DATA: On admission, her sodium was mildly depressed at 132, potassium was 3.6. Her creat inine was 0.7. Her white count was 15.5, hemoglobin was 11.6, hematocrit 33.2, platelet count was 23 3. Urine showed small occult blood. She had 6-10 RBCs per high power field. She had 0-3 WBCs. Her nitrites as well as leukocytes were negative. She had moderate squamous cells and rare bacteria. IMAGING DATA: Ultrasound performed today at noon, but not read until 4 o'clock, showed evidence of m ultiple kidney stones in the left kidney. There were also multiple stones in the right kidney. Ther e was a stone in the left UV junction with no jet noted. There was what appeared to be obstruction o n the left ureter. She had bilateral mild to moderate hydronephrosis. HOSPITAL COURSE: The patient was admitted, given a morphine GENERAL REPAIR MECHANIC for pain control. Labs were obtaine d, and she had an ultrasound ordered for this morning. The ultrasound was not performed until noon a nd results were not reported until 1600. At that point, she was noted to have a complete UV junction obstruction on the left-hand side. She has not run any temperatures. Her pain has continued to be present as she has been utilizing a morphine GENERAL REPAIR MECHANIC. Following discussing with Dr. Hiro Abrams at [facility], it was decided that because of the lack of flow and lack of urologic con sults available here that she should be transferred to [facility]. This will be accomp lished in a timely fashion. TD: 04/28/2018 17:41
[2018-04-28 19:51] VITALS: BP 120/71
== END 2018-04-28 20:00 | disposition short-term general hospital (02) ==
LOC: WFO 00:57 → FBP 00:58 → WFO 02:13 → MS2 02:14
PROVIDERS: ADMIT Obstetrics & Gynecology; ATTEND Obstetrics & Gynecology
DX: O26.832 Pregnancy related renal disease, second trimester (principal); N13.2 Hydronephrosis with renal and ureteral calculous obstruction; O23.02 Infections of kidney in pregnancy, second trimester; O99.282 Endocrine, nutritional and metabolic diseases complicating pregnancy, second trimester; E87.1 Hypo-osmolality and hyponatremia; E86.0 Dehydration; Z3A.27 27 weeks gestation of pregnancy; Z79.2 Long term (current) use of antibiotics; Z87.442 Personal history of urinary calculi; Z86.69 Personal history of other diseases of the nervous system and sense organs
CPT/HCPCS: 36415; 76770; 76816; 80053; 81001; 85025; 87040; 96361; 96374; 96375; 96376; 99213; A9270; G0378; J7120

== ENCOUNTER 2023-09-18 15:47 | Outpatient (CLI) | payer OTHER ==
--- NOTE | 2023-09-18 16:14 | Sleep Patient Instructions ---
Sleep Center Visit Summary - Patient Visit Information Reason for Visit: Initial consult for evaluation of sleep disordered breathing and other sleep issues. - Patient Instructions Instructions Attached: Sleep Study Home Monitor, Sleep Study Additional Instructions: You will be completing a sleep study, either an in-lab polysomnography (PSG) or home sleep study (HST). You will follow-up in the sleep care office after the sleep study is completed to hear the results and talk about therapy, if needed. You will be called by our office staff to schedule this appointment, but you may contact us with any questions. - Clinic Information Contact: [facility] [address] [place] [id number] [email or web address] T: [phone]
--- NOTE | 2023-09-18 16:17 | SLEEP CARE CONSULTATION ---
Information from patient questionnaire entered by Boris Everett. I have reviewed and concur with the information entered by Boris Everett. This document represents the service I personally performed and the decisions made by me, Ruthann Willard ARNP. History of Present Illness Service Date and Time: 09/18/2023 1547 Reason for Visit: New patient Chief Complaint: reports: Other (MIGRAINES) Date of Onset: 17YRS Usual bedtime: 2300 Time it takes to fall asleep: 10-15MINS Snores at night: Yes Observed to quit breathing while asleep: Yes Sleeps alone due to snoring: No Number of times waking at night: 2-3 Reasons for waking at night: reports: Snoring, Pain, Bathroom, Other (TEMPERATURE, CHILDREN, DISCOMFORT, SINUSES). denies: Choking, Gasping for air Toss, Turn, or Twitch while sleeping: Yes Recalls having dreams: Yes Usually gets out of bed at: 3664-1512 Feels refreshed in the morning: No Morning headache: Yes (1-2 times a week) Sleepy or fatigued during the day: Yes Ever fallen asleep while driving: No Takes day naps: No Dreams during day naps: Yes Prior sleep studies: No Additional HPI information: I had the pleasure of seeing RC JONES today regarding the possibility of her having a sleep disorder. Her current complaint is migraines. She has a history of migraines and was seeing a neurologist in [facility]. She came back here and requested a referral but her primary wanted a sleep study first. She has had migraines for the last 17 years. She says she wakes up with a headache 1-2 times a week. She has medicate right away to keep it from becoming a migraine. She s ays she does snores and her and has noted pauses in snoring with a "snort" that he thought she was gasping for air. He says her snoring is not consistent, is more when sinuses are inflamed or sleeping with mouth open. - Parasomnia Symptoms Ever been unable to move upon waking from sleep: Yes (happened a lot when younger; as an adult not as much) Walks in sleep: No Talks in sleep: Yes Ever acted out dreams in sleep: No Ever felt weak in the knees when startled or emotional: Yes (feels it is from anxiety with high stress levels) Bothered by creepy, crawly, restless sensations in legs: Yes (when on feet a lot has aching in legs, numb aching feeling) Problems with memory or concentration: Yes (both) Subjective Initial [place] Sleepiness Scale score: 18 (09/11/23) Past Medical History Past Medical History: reports: Anxiety, Asthma, Other (MIGRAINES) Social History The patient's occupation is a [employer]. Patient is and lives in [place]. Have you smoked in the past 12 months: No Alcohol use: Yes Alcohol amount and frequency: 1-2 GLASSES OCCASSIONALLY Caffeine use: No Family History Family history of sleep disordered breathing: Yes Family Hx Sleep Apnea: Mother: Snoring, Sleep apnea - Treated Allergies and Home Medications Known drug allergies: No Drug allergies reviewed: Yes Home medication list reviewed: Yes (as listed) Allergy and home medication list: Allergies No Known Drug Allergies Allergy (Verified 09/16/23 16:09) Home Medications Medication Instructions Recorded Confirmed Last Taken Type Multivitamin See Rx Instructions .ROUTE .COMPLEX 09/18/23 09/18/23 Unknown History Review of Systems Cardiovascular: denies: high blood pressure Respiratory: reports: shortness of breath, wheeze, sputum production Gastrointestinal: reports: nausea, diarrhea Urinary: reports: incontinence Neurological: reports: headaches Psychiatric: reports: anxiety Ear/Nose/Throat: reports: nasal congestion, sinus problems, wisdom teeth removed. denies: tonsillectomy Endocrine: reports: too hot or cold Musculoskeletal: reports: neck pain, back pain Immunologic: reports: sneezing, itching, allergies to food or environment Physical Exam Vital signs obtained and entered by: BORIS Blanton MA Blood Pressure: 140/91 (RIGHT ARM) Cuff size: regular Heart Rate: 65 O2 Saturation: 98 Height: 5 ft 3 in Weight: 191 lb 12.8 oz Body Mass Index: 34.0 BMI Classification: Obese Neck circumference: 16 Mouth and throat: narrow oropharynx Soft palate: long Hard palate: normal Uvula: normal Uvula visualization: 50% Mallampati Class II Tongue: enlarged in size with teeth penny on lateral edges Tonsils: 1+ Neck: normal w/o lymphadenopathy or thyromegaly Heart: regular rate and rhythm Lungs: clear bilaterally Impression and Plan 1. Suspected Obstructive Sleep Apnea-Hypopnea Syndrome, as suggested by a history of loud and irregular snoring, observed cessation of breath while asleep, morning headache, unrefreshed sleep, cognitive impairment, and excessive daytime sleepiness. Narrow oropharynx and obesity are common predisposing factors for obstructive sleep apnea-hypopnea syndrome. I recommend proceeding to polysomnography to confirm the diagnosis and to assess severity. If the patient has significant sleep disordered breathing, a manual CPAP titration study will also be performed to find the optimal treatment pressure. I informed the patient of what the sleep studies involve and after some discussion, obtained agreement to proceed. The pathophysiology of obstructive sleep apnea-hypopnea syndrome was discussed with the patient and health risks of cardiovascular and cerebrovascular disease if not treated. Risks of drowsy driving discussed in detail and patient advised to avoid long distance driving and to clod puller at the first sign of drowsiness. Patient agreed to plan. * Schedule polysomnography. * Avoid long distance driving or driving when feeling sleepy. * Avoid alcohol, sedative and muscle relaxant around bedtime. * Attempt to lose weight. * Review instructions provided by trained office staff on how to prepare for the sleep study. * Return for follow-up after sleep study completed. Counseling Topics: Weight loss health impact Follow up with Sleep Care in: other (for sleep study results) Plan: PSG/HST Visit Type: In Office Time Spent with Patient (minutes): 30 Provider Statement: I spent 100% of the Face to Face Visit with the patient with greater than 50% spent counseling the patient and coordination of care.
[2023-09-18 16:24] VITALS: BP 140/91; O2SAT 98
== END 2023-09-18 15:48 | disposition home or self-care (01) ==
LOC: SC 15:47
PROVIDERS: ATTEND Nurse Practitioner Family
DX: G47.10 Hypersomnia, unspecified (principal); R06.83 Snoring; R51.9 Headache, unspecified; G47.8 Other sleep disorders; R41.89 Other symptoms and signs involving cognitive functions and awareness
CPT/HCPCS: 99203; 99212

== ENCOUNTER 2023-10-13 20:34 | Outpatient (CLI) | payer OTHER | END 2023-10-13 20:35 | disposition home or self-care (01) | LOC: SC 20:34 | PROVIDERS: ATTEND Nurse Practitioner Family | DX: G47.33 Obstructive sleep apnea (adult) (pediatric) (principal); E66.9 Obesity, unspecified; Z68.33 Body mass index [BMI] 33.0-33.9, adult | CPT/HCPCS: 95810 ==

== ENCOUNTER 2023-11-07 10:40 | Outpatient (CLI) | payer OTHER ==
--- NOTE | 2023-11-07 11:03 | Sleep Patient Instructions ---
Sleep Center Visit Summary - Patient Visit Information Reason for Visit: Sleep study follow-up - Patient Instructions Instructions Attached: Apnea Sleep Mouthpieces Additional Instructions: You are to start Positional therapy to control your sleep apnea. You may obtain positional belts or other commercial devices online. You may also use pillows to position yourself on your side or a T shirt with balls sewn into the back to help keep you on your side to sleep. We would like to follow up with you in a month to check effectiveness of therapy. I have also given you a prescription for the oral appliance to use if positional therapy is not as effective as needed. A list of certified dentists in the area was provided for you to find a dentist to have your oral appliance made. Once you have the device, please call and make a follow up appointment. We need to see you after you have been using the appliance for a month. We will evaluate your response to therapy and order a follow up sleep study to check efficiency of treatment. Please call office to schedule a follow up appointment in the sleep care office in 1-2 months. - Clinic Information Contact: [facility] [address] [place] [address] [email or web address] T: [phone]
--- NOTE | 2023-11-07 11:09 | SLEEP CARE CONSULTATION ---
Information from patient questionnaire entered by Mariposa Everett. I have reviewed and concur with the information entered by Mariposa Everett. This document represents the service I personally performed and the decisions made by , Ruthann Willard ARNP. History of Present Illness Service Date and Time: 11/07/2023 1040 Initial [place] Sleepiness Scale score: 18 (09/11/23) Current [place] Sleepiness Scale score: 18 Additional HPI information: RC JONES returns for follow up and results of the recently performed polysomnography. The sleep study showed mild obstructive sleep apnea with an average AHI of 10.8 and daniele oxygen saturation of 83%. I explained the pathophysiology behind obstructive sleep apnea. We then spent quite a bit of time discussing different treatment options. For mild obstructive sleep apnea, surgery and oral appliance are alternatives to nasal CPAP therapy but in moderate or severe cases, nasal CPAP is the most effective and reliable treatment. Because apnea is primarily in supine position, then positional management therapy could be effective. Methods discussed such as positioning with pillows, using a T-shirt with tennis balls in the back or commercial products that have a pillow format on back to prevent supine sleep. I reviewed the impact of weight changes on sleep apnea and strongly recommended losing weight. After some discussion, the patient opted to go with the positional therapy and possibly the oral appliance. Patient counseled not drink alcohol less than 4 hours before bedtime as it can increase snoring and apnea. Patient was cautioned about risks of drowsy driving until sleepiness symptoms resolve. Patient denies drowsy driving. Sleep Study - Results Type of Sleep Study: Polysomnography (COMPLETED 10/13/23) Prior sleep studies: No Polysomnography/Home Sleep Study results: IMPRESSION: The quality of the study is good. The patient had normal sleep efficiency. The sleep architecture was relatively normal as well considering the first night effect.. Respiratory monitoring showed mild obstructive sleep apnea-hypopnea (AHI = 10.8) associated with oxyhemoglobin desaturation and mild hypoxia (daniele oxygen saturation of 83%). The respiratory events occurred mainly during REM sleep (supine AHI = 13.3; non-supine = 0.75). Snore was infrequent and light in intensity. There was no significant periodic leg movement of sleep. Cardiac rhythm was normal sinus rhythm without significant arrhythmia. No abnormal behavior (parasomnia) observed during the night. Allergies and Home Medications Known drug allergies: No Drug allergies reviewed: Yes Home medication list reviewed: Yes (no changes) Allergy and home medication list: Allergies No Known Drug Allergies Allergy (Verified 11/05/23 11:10) Review of Systems Review of systems same as previous: Yes (no changes) Physical Exam Vital signs obtained and entered by: RUTHANN EDWARDS Blood Pressure: 132/88 Cuff size: long (right) Heart Rate: 69 O2 Saturation: 97 Height: 5 ft 3 in Weight: 189 lb 6.4 oz Body Mass Index: 33.5 BMI Classification: Obese Impression and Plan 1. Obstructive Sleep Apnea-Hypopnea Syndrome, mild, with lowest oxygen saturation of 83%. Obviously this is the cause of the patients symptoms of unrefreshed sleep, and excessive daytime sleepiness. Positive pressure therapy could benefit anxiety and migraines. Since patients apnea is primarily in supine position, patient advised that she could try positional therapy and agreed with plan. Follow up is scheduled for one month to check effectiveness and if further evaluation indicated. She would also like to work toward an oral appliance to treat their apnea. After her positional therapy followup she will let me know if she has reduced symptoms or if she will go forward with getting oral appliance. 2. Hypoxemia, mild, with a daniele oxygen saturation of 83% and 5.2 minutes spent under 90%. The baseline oxygen saturation was normal with an average oxygen saturation of 92%. 3. Obesity, unspecified. Currently patients BMI is 33.5. Obesity increases the risk of apnea, CPAP pressure requirements and overall health risks especially cardiovascular and diabetes. Thus patient is advised to lose weight. * Positional therapy and then possibly oral appliance. * Attempt to lose weight. * Avoid alcohol consumption near bedtime. * Avoid supine sleep. * Return in 1-2 months to assess response to therapy and determine if change of therapy is needed. Counseling Topics: Sleeping position, Weight loss health impact Prescriptions: Other (oral appliance) Plan: Positional therapy until getting oral appliance Visit Type: In Office Time Spent with Patient (minutes): 20 Provider Statement: I spent 100% of the Face to Face Visit with the patient with greater than 50% spent counseling the patient and coordination of care.
[2023-11-07 11:12] VITALS: BP 132/88; O2SAT 97
== END 2023-11-07 10:41 | disposition home or self-care (01) ==
LOC: SC 10:40
PROVIDERS: ATTEND Nurse Practitioner Family
DX: G47.33 Obstructive sleep apnea (adult) (pediatric) (principal); R09.02 Hypoxemia; E66.9 Obesity, unspecified; Z68.33 Body mass index [BMI] 33.0-33.9, adult
CPT/HCPCS: 99212; 99213